=== PATIENT | male | born 1980 | race Caucasian/White ===

== ENCOUNTER 2016-10-30 19:33 | Emergency (ER) | payer MEDICAID ==
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
--- NOTE | 2016-11-01 08:07 | RADIOLOGY REPORT ---
EXAM: LEFT SECOND DIGIT, THREE VIEWS HISTORY: PATIENT HAS PAIN AND SWELLING OF THE DISTAL PHALANX. TECHNIQUE: Three views of the left second digit are provided along with the comparison study dated of the left hand dated 09/16/14. FINDINGS: There is no radiographic evidence of an acute fracture or dislocation of the left second digit. Soft tissue swelling over the left second digit is noted. No radiopaque foreign bodies are identified. IMPRESSION: SOFT TISSUE SWELLING IS NOTED OVER THE LEFT SECOND DIGIT WITHOUT RADIOGRAPHIC EVIDENCE OF A FRACTURE OR DISLOCATION OF THE LEFT SECOND DIGIT. [facility]OB [facility]BER: [id number] [facility]
--- NOTE | 2016-11-01 08:10 | RADIOLOGY REPORT ---
EXAM: RIGHT KNEE, THREE VIEWS HISTORY: PATIENT HAS PAIN IN THE LATERAL POSTERIOR ASPECT OF THE RIGHT KNEE PAIN. TECHNIQUE: Three views of the right knee are provided without comparison examinations. FINDINGS: There is no radiographic evidence of a fracture or dislocation of the right knee. No significant soft tissue abnormalities are visualized. Mild suprapatellar bursal effusion is noted. IMPRESSION: MILD SUPRAPATELLAR BURSAL EFFUSION IS NOTED WITHOUT RADIOGRAPHIC EVIDENCE OF A FRACTURE OR DISLOCATION OF THE RIGHT KNEE. [facility]: [id number] [facility]
== END 2016-10-30 22:06 | disposition home or self-care (01) ==
LOC: ER 19:33
DX: S60.022A Contusion of left index finger without damage to nail, initial encounter (principal); W01.0XXA Fall on same level from slipping, tripping and stumbling without subsequent striking against object, initial encounter; Y93.83 Activity, rough housing and horseplay; Y92.410 Unspecified street and highway as the place of occurrence of the external cause
CPT/HCPCS: 73140; 99283

== ENCOUNTER 2017-09-03 19:46 | Emergency (ER) | payer SELFPAY ==
--- NOTE | 2017-09-03 20:09 | Emergency Department Record ---
History of Present Illness - General Chief complaint: Dental Stated complaint: DENTAL PAIN/SWOLLEN JAW Time Seen by Provider: 09/03/17 20:00 Source: Patient Mode of Arrival: Ambulatory Limitations: No limitations - History of Present Illness Initial comments: The patient is here due to swelling to his L maxillary area for one day. He has some broken teeth in the L upper molar area and now believes they are infected. There is no fever, IRENE, ST or difficulty swallowing. MD complaint: Tooth pain Onset/Timin -: Days(s) Location: Tooth # Severity: Moderate Severity scale (1-10): 7 Quality: Aching Consistency: Constant, Getting worse Improves with: None Worsens with: None Associated Symptoms: Gum swelling, Toothache - Related Data Previous Rx's Medication Instructions Recorded Clindamycin HCl [Cleocin HCl] 300 mg PO QID #28 capsule 09/03/17 Ibuprofen [Motrin] 800 mg PO TID PRN #20 tab 09/03/17 Allergies Allergy/AdvReac Type Severity Reaction Status Date / Time No Known Drug Allergies Allergy Unverified 12/12/16 11:27 Travel Screening - Travel/Exposure Within Last 30 Days Have you traveled within the last 30 days?: No Review of Systems Constitutional: Denies: Chills, Fever Eyes: Denies: Eye discharge Past Medical History - SOCIAL HISTORY Smoking Status: Current every day smoker Alcohol Use: None Drug Use: None - RESPIRATORY Hx Respiratory Disorders: No - CARDIOVASCULAR Hx Cardio Disorders: No - NEURO Hx Neuro Disorders: No - GI Hx GI Disorders: No - Hx Genitourinary Disorders: No - ENDOCRINE Hx Endocrine Disorders: No - MUSCULOSKELETAL Hx Musculoskeletal Disorders: No - PSYCH Hx Psych Problems: No - HEMATOLOGY/ONCOLOGY Hx Hematology/Oncology Disorders: No Family Medical History Any Significant Family History?: No Physical Exam - General General Appearance: Alert, Oriented x3, Cooperative, No acute distress - Head Head exam: Atraumatic, Normocephalic, Normal inspection - Eye Eye exam: Normal appearance, PERRL - ENT ENT exam: Normal orophraynx, TM's normal bilaterally. negative: Normal exam ( There is mild swelling to the L maxillary area.) Teeth exam: Dental caries, Dental tenderness # (14-16.). negative: Normal inspection, Gingival enlargement Throat exam: Normal inspection. negative: Tonsillar erythema, Tonsillar exudate - Neck Neck exam: Normal inspection, Full ROM. negative: Tenderness Course Vital Signs 09/03/17 19:52 Temperature 98 F Pulse Rate [ 84 Pulse Ox Probe] Respiratory 20 Rate Blood Pressure 164/109 [Left Arm] Pulse Ox 99 - Reevaluation(s) Reevaluation #1: I did explain to the patient the need for dental F/U and to take the pain medicines and oral Abx's. 09/03/17 20:07 Disposition Disposition: Discharge Clinical Impression: Infected dental carries Disposition: Home, Self-Care Condition: (2) Stable Instructions: Dental Abscess (ED) Additional Instructions: Please take the Motrin and Clindamycin as directed. Please see a Dentist CARRIE. Return to the ER for any worsening symptoms. Prescriptions: Clindamycin HCl [Cleocin HCl] 300 mg PO QID #28 capsule Ibuprofen [Motrin] 800 mg PO TID PRN #20 tab PRN Reason: Pain Forms: Patient Portal Access Time of Disposition: 20:09 Quality - Quality Measures Quality Measures: N/A - Blood Pressure Screening View Details: Yes Does Patient Have Any of the Following: No Blood Pressure Classification: Hypertensive Reading Systolic Measurement: 158 Diastolic Measurement: 98 Screening for High Blood Pressure: < First Hypertensive BP, F/U Documented > [ G8950] First Hypertensive Follow-up Interventions: Referral to alternative/primary care provider.
[2017-09-03] MEDS: CLINDAMYCIN 150 MG CAP PO ONE (20:21)
[2017-09-03] MEDS: IBUPROFEN 600 MG TABLET PO ONE (20:21)
== END 2017-09-03 20:25 | disposition home or self-care (01) ==
LOC: ER 19:46
DX: K02.7 Dental root caries (principal)
CPT/HCPCS: 99282